=== PATIENT | female | born 1940 | race Caucasian/White ===

== ENCOUNTER 2016-12-01 15:41 | Outpatient (CLI) | payer OTHER, MEDICARE ==
--- NOTE | 2016-12-01 16:59 | DIAGNOSTIC IMAGING REPORT ---
PROCEDURE: XR WRIST MIN 3 VIEWS - RIGHT INDICATION: JOINT PAIN TECHNIQUE: Five views of the right wrist. COMPARISON: None. FINDINGS: Moderate diffuse demineralization. No acute or subacute fractures. No suspicious sclerosis to suggest avascular necrosis. Normal osseous alignment. Tiny calcification adjacent to the pisiform. No chondrocalcinosis. No radiodense foreign bodies. IMPRESSION: 1. Intact right wrist. 2. Moderate demineralization.. 3. Dystrophic calcification adjacent to the pisiform. 4. If there is clinical concern for an occult scaphoid fracture, MR imaging is recommended.
== END 2016-12-01 23:00 ==
LOC: XR SRH 15:41
DX: M25.531 Pain in right wrist (principal)

== ENCOUNTER 2016-12-07 09:55 | Outpatient (CLI) | payer MEDICARE ==
--- NOTE | 2016-12-07 12:04 | DIAGNOSTIC IMAGING REPORT ---
PROCEDURE: MR UPPER EXTREMITY W/O CONT-RT INDICATION: WRIST PAIN RT SIDE TECHNIQUE: PD, gradient, and STIR coronal images. PD, FAT-SAT PD, and STIR axial images. PD and FAT-SAT PD sagittal images. COMPARISON: Right wrist x-ray 12/01/2016. FINDINGS: Bone contusion of the trapezium, lunate and ulnar styloid. Normal scaphoid without evidence of a fracture. Normal triangular fibrocartilage. Minor soft tissue edema dorsal aspect of the wrist. Normal extensor and flexor tendons. Small amount of fluid around the pisiform. 5.5 mm cyst adjacent to the extensor carpi ulnaris suggestive of a colloid cyst. IMPRESSION: 1. Bone contusions of the trapezium, lunate and ulnar styloid 2. Normal scaphoid 3. 5.5 mm extensor carpi ulnaris tendon ganglion cyst
== END 2016-12-07 23:00 ==
LOC: MRI SRH 09:55
DX: S60.211A Contusion of right wrist, initial encounter (principal); M67.431 Ganglion, right wrist